=== PATIENT | male | born 1990 | race Caucasian/White ===

== ENCOUNTER 2022-10-28 15:35 | Emergency (ER) | payer MEDICAID, SELFPAY ==
[2022-10-28 15:40] VITALS: BP 170/101; PULSE 104; TEMP 36.2; O2SAT 96; BMI 24.4
--- NOTE | 2022-10-28 16:12 | ED.PSYCH ---
HPI - Psych General Chief Complaint: Psychiatric Problem/Disorder Stated Complaint: Mental Health Crisis Time Seen by Provider: 10/28/22 15:40 History of Present Illness HPI Narrative: This 31 year old male comes in for worsening symptoms of depression and anxiety. He is tearful and fidgeting with lots of anxiety. He states that he did not sleep well last night. He does not report any recent triggers that made things worse. He does have a history of depression and anxiety and is taking fluoxetine for these symptoms. He is also taking a sleeping medicine. He denies using any street drugs. He does state that he drinks alcohol frequently. His last drink was yesterday and states that he does not feel like he is having symptoms of withdrawal. He does report suicidal thoughts and feels unsafe but does not have any specific plan in mind. He has not harmed himself in the past. Related Data Home Medications Medication Instructions Recorded Confirmed fluoxetine 40 mg capsule mg 10/28/22 zolpidem 10 mg tablet mg 10/28/22 Allergies Allergy/AdvReac Type Severity Reaction Status Date / Time No Known Drug Allergies Allergy Verified 10/28/22 15:43 Review of Systems Status of ROS: Reports: 10 or more systems reviewed and unremarkable except as noted in History and below Narrative: Constitutional: No fevers, no weight gain or loss. Eyes: No discharge. No vision changes. HENT: No congestion, no sore throat, no ear pain. Cardiovascular: No chest pain, no palpitations. Respiratory: No shortness of breath, no wheezes, no cough. Gastrointestinal: No abdominal pain, no vomiting, no diarrhea. Genitourinary: No dysuria, no hematuria. Musculoskeletal: Normal range of motion. Skin: No rashes, no pruritis. Neurological: No dizziness, weakness, sensory change, speech change. Endo/Heme/Allergies: No bruising or bleeding. No polydipsia. Pysch: Depression and anxiety with suicidal thoughts. All other systems reviewed and are negative. PFSH PFSH Social History Smoking Status: Never smoker How often do you have a drink containing alcohol: 4 or more times a week How many standard drinks containing alcohol do you have on a typical day: 3 or 4 How often do you have six or more drinks on one occasion: Never AUDIT-C Alcohol total score: 5 Non-prescribed substance use: denies use Exam Narrative: Exam Narrative: Constitutional: Well-developed, well-nourished, no acute distress. HEENT: Normocephalic, atraumatic. Neck: Normal range of motion. Nontender. Supple. Heart: Regular. No murmurs. Normal rate. Intact distal pulses. Lungs: Clear to auscultation. No chest discomfort. No wheezes, rhonchi, or rales. Abdomen: Normal bowel sounds. Nontender. No rebound tenderness. Genitalia: Deferred. Back: No midline tenderness. Normal range of motion. Extremities: Normal range of motion. No injury. Skin: Intact. No rash. Warm. No erythema or pallor. Neurologic: No altered sensation. No weakness. Alert and oriented. Psychiatric: The patient is tearful and fidgeting with anxiety. He is pleasant and cooperative and seeking help. Nursing notes and vitals signs are reviewed. Const: Vital Signs, click to edit/add: Vital Signs - 24 hr 10/28/22 15:40 10/28/22 20:31 Temperature 97.2 F L 98.6 F Pulse Rate [Pulse Oximeter] 104 H 88 Respiratory Rate 16 Blood Pressure [Ri ght Upper Arm] 170/101 H 150/102 H Pulse Oximetry 96 97 Oxygen Delivery Me thod Room Air Course Vital Signs Vital signs: Initial Vital Signs Temperature 97.2 F L 10/28/22 15:40 Temperature Source Temporal Artery Scan 10/28/22 15:40 Pulse Rate 104 H 10/28/22 15:40 Blood Pressure 170/101 H 10/28/22 15:40 Blood Pressure Mean 124 10/28/22 15:40 Blood Pressure Position Sitting 10/28/22 15:40 Pulse Oximetry 96 10/28/22 15:40 Oxygen Delivery Method 10/28/22 15:40 Vital Signs Temperature 97.2 F L 10/28/22 15:40 Pulse Rate 104 H 10/28/22 15:40 Blood Pressure 170/101 H 10/28/22 15:40 Pulse Oximetry 96 10/28/22 15:40 Oxygen Delivery Method 10/28/22 15:40 Temperature 98.6 F 10/28/22 20:31 Pulse Rate 88 10/28/22 20:31 Respiratory Rate 16 10/28/22 20:31 Blood Pressure 150/102 H 10/28/22 20:31 Pulse Oximetry 97 10/28/22 20:31 Oxygen Delivery Method 10/28/22 15:40 MDM - Psych MDM Narrative Medical decision making narrative: This patient comes in with worsening depression and anxiety and feeling unsafe because of suicidal thoughts. He appeared rather anxious and did then receive an oral dose of Ativan 1 mg. A tele health assessment was completed. The patient states that he feels unsafe if he were to go home he is worried that he may hurt himself. He does have thoughts of using a gun or taking pills but reports that he does not have any access to a gun. He does report depression symptoms that are worse in the winter and does have a remote history of traumatic brain injury. He has had increased stressors at work. Urine drug screen does return positive for benzodiazepines and this sample was acquired before he received his oral dose of Ativan here. The Ativan he received here did help him sufficiently with his anxiety symptoms. Attempt was made for transfer to various locations but no beds are available this evening. The patient was informed that he will likely need to spend the night here and hope for something to open up in the morning. He remains cooperative and willing to be transferred when a bed opens. If he were to changes mind he should be placed on a 72 hour hold. This patient is medically cleared to be transferred to an inpatient psych facility for further evaluation and treatment there. Lab Data Labs: Lab Results 10/28/22 10/28/22 10/28/22 Range/Units 15:54 15:54 18:24 WBC (4.50-11.00) K/uL RBC (4.30-5.90) m/uL Hgb (13.5-17.5) gm/dL Hct (37.0-53.0) % MCV (80-100) fL MCH (26-34) pg MCHC (32-36) gm/dL RDW Coeff of Yesica (11.5-15.5) % Plt Count (140-440) K/uL Neut % (Auto) (42.0-72.0) % Lymph % (Auto) (20-44) % [place] % (Auto) (0.0-11.0) % Eos % (Auto) (0.0-7.0) % Baso % (Auto) (0.0-3.0) % Neut # (Auto) (1.7-7.0) K/uL Lymph # (Auto) (0.90-2.90) K/uL [place] # (Auto) (0.00-0.90) K/UL Eos # (Auto) (0.00-0.50) K/uL Baso # (Auto) (0.00-0.30) K/uL Sodium 140 (135-149) mmol/L Potassium 4.1 (3.6-5.1) mmol/L Chloride 103 (96-114) mmol/L Carbon Dioxide 25 (20-32) mmol/L BUN 14 (5-24) mg/dL Creatinine 0.8 (0.5-1.5) mg/dL Estimated Creat Clear 135.61 Estimated GFR 120 ml/min Glucose 103 (60-115) mg/dL Calcium 9.3 (8.4-10.6) mg/dL TSH (0.270-4.20) uIU/mL Urine Opiates Screen Negative (Negative) Ur Oxycodone Screen Negative (Negative) Urine Methadone Screen Negative (Negative) Ur Propoxyphene Screen Negative (Negative) Acetaminophen < 10.0 L (10.0-30.0) ug/mL Ur Barbiturates Screen Negative (Negative) U Tricyclic Antidepress Negative (Negative) Ur Phencyclidine Scrn Negative (Negative) Ur Amphetamines Screen Negative (Negative) U Methamphetamines Scrn Negative (Negative) U Benzodiazepines Scrn POSITIVE A* (Negative) Urine Cocaine Screen Negative (Negative) U Marijuana (THC) Screen Negative (Negative) Ur Drug Screen Comment See Note Ethyl Alcohol < 0.01 L (0.01-0.03) % SARS-CoV-2 (PCR) Negative SARS-CoV-2 (Negative) 10/28/22 10/28/22 Range/Units 18:24 18:24 WBC 8.79 (4.50-11.00) K/uL RBC 5.30 (4.30-5.90) m/uL Hgb 17.1 (13.5-17.5) gm/dL Hct 48.5 (37.0-53.0) % MCV 92 (80-100) fL MCH 32 (26-34) pg MCHC 35 (32-36) gm/dL RDW Coeff of Yesica 11.7 (11.5-15.5) % Plt Count 327 (140-440) K/uL Neut % (Auto) 69.1 (42.0-72.0) % Lymph % (Auto) 19.1 L (20-44) % [place] % (Auto) 8.2 (0.0-11.0) % Eos % (Auto) 2.2 (0.0-7.0) % Baso % (Auto) 0.9 (0.0-3.0) % Neut # (Auto) 6.08 (1.7-7.0) K/uL Lymph # (Auto) 1.70 (0.90-2.90) K/uL [place] # (Auto) 0.70 (0.00-0.90) K/UL Eos # (Auto) 0.19 (0.00-0.50) K/uL Baso # (Auto) 0.08 (0.00-0.30) K/uL Sodium (135-149) mmol/L Potassium (3.6-5.1) mmol/L Chloride (96-114) mmol/L Carbon Dioxide (20-32) mmol/L BUN (5-24) mg/dL Creatinine (0.5-1.5) mg/dL Estimated Creat Clear Estimated GFR ml/min Glucose (60-115) mg/dL Calcium (8.4-10.6) mg/dL TSH 0.792 (0.270-4.20) uIU/mL Urine Opiates Screen (Negative) Ur Oxycodone Screen (Negative) Urine Methadone Screen (Negative) Ur Propoxyphene Screen (Negative) Acetaminophen (10.0-30.0) ug/mL Ur Barbiturates Screen (Negative) U Tricyclic Antidepress (Negative) Ur Phencyclidine Scrn (Negative) Ur Amphetamines Screen (Negative) U Methamphetamines Scrn (Negative) U Benzodiazepines Scrn (Negative) Urine Cocaine Screen (Negative) U Marijuana (THC) Screen (Negative) Ur Drug Screen Comment Ethyl Alcohol (0.01-0.03) % SARS-CoV-2 (PCR) (Negative) Discharge Plan Discharge Clinical Impression: Suicidal ideation, Depression, Acute anxiety Prescriptions: No Action fluoxetine 40 mg capsule Label Comments: TAKE ONE CAPSULE BY MOUTH EVERY DAY zolpidem 10 mg tablet Label Comments: TAKE 1/2 TO 1 TABLET BY MOUTH AT BEDTIME NEEDED FOR SLEEP Follow Up/Referrals: Daljit House MD [Staff Physician] -
[2022-10-28] MEDS: LORazepam 1 MG TABLET PO ×2 (16:15→21:25)
[2022-10-28 16:24] LABS: Amphetamine Screen Urine Negative (Negative); Barbiturate Screen Urine Negative (Negative); Cannabinoid Screen Urine Negative (Negative); Cocaine Screen Urine Negative (Negative); Methadone Screen Urine Negative (Negative); Methamphetamines Screen Urine Negative (Negative); Opiate Screen Urine Negative (Negative); Oxycodone Screen Urine Negative (Negative); Phencyclidine Screen Urine Negative (Negative); Tricyclic Antidepressant Urine Negative (Negative)
[2022-10-28 16:31] LABS: Benzodiazepines Screen Urine POSITIVE (Negative)
[2022-10-28 17:00] LABS: SARS PCR* Negative SARS-CoV-2 (Negative)
[2022-10-28 18:36] LABS: Basophils Absolute Auto 0.08 K/uL (0.00-0.30); Basophils Percent Auto 0.9 % (0.0-3.0); Eosinophils Absolute Auto 0.19 K/uL (0.00-0.50); Eosinophils Percent Auto 2.2 % (0.0-7.0); Hematocrit 48.5 % (37.0-53.0); Hemoglobin* 17.1 gm/dL (13.5-17.5); Immature Granulocytes Abs Auto 0.04 K/uL (0.00-0.30); Immature Granulocytes Pct Auto 0.5 %; Lymphocytes Percent Auto 19.1 % (20-44); Mean Corpuscular HGB Conc 35 gm/dL (32-36); Mean Corpuscular Hemoglobin 32 pg (26-34); Mean Corpuscular Volume 92 fL (80-100); Monocytes Percent Auto 8.2 % (0.0-11.0); Neutrophils Absolute Auto 6.08 K/uL (1.7-7.0); Neutrophils Percent Auto 69.1 % (42.0-72.0); Platelet Count* 327 K/uL (140-440); RDW Coefficient of Variation % 11.7 % (11.5-15.5); White Blood Count* 8.79 K/uL (4.50-11.00)
[2022-10-28 18:40] LABS: Slide Review Reflex No
--- NOTE | 2022-10-28 18:45 | ED.NURSE ---
Belongings secured by security.
[2022-10-28 18:49] LABS: Chloride* 103 mmol/L (96-114); Potassium* 4.1 mmol/L (3.6-5.1); Sodium* 140 mmol/L (135-149)
[2022-10-28 18:51] LABS: Creatinine* 0.8 mg/dL (0.5-1.5); Est. Creatinine Clearance* 135.61; Estimated Glomerular Filt Rate 120 ml/min
[2022-10-28 18:52] LABS: Blood Urea Nitrogen* 14 mg/dL (5-24); Calcium* 9.3 mg/dL (8.4-10.6); Carbon Dioxide* 25 mmol/L (20-32); Glucose* 103 mg/dL (60-115)
[2022-10-28 18:53] LABS: Acetaminophen* < 10.0 ug/mL (10.0-30.0); Ethanol* < 0.01 % (0.01-0.03)
--- NOTE | 2022-10-28 19:00 | ED.NURSE ---
Information faxed to [facility]
[2022-10-28 19:36] LABS: Thyroid Stimulating Hormone* 0.792 uIU/mL (0.270-4.20)
[2022-10-28 20:31] VITALS: BP 150/102; PULSE 88; RESP 16; TEMP 37; O2SAT 97
--- NOTE | 2022-10-28 21:47 | ED.NURSE ---
no beds available tonight. will call in the morning for re-assessment. pt. cooperative and understanding. vitals stable.
[2022-10-28 23:57] VITALS: BP 145/89; PULSE 84; RESP 16; O2SAT 97
--- NOTE | 2022-10-29 00:37 | ED.NURSE ---
pt. sleeping at this time. video monitoring for safety. placement pending.
[2022-10-29 02:28] VITALS: BP 154/90; PULSE 87; RESP 16; O2SAT 97
[2022-10-29 06:11] VITALS: BP 145/85; PULSE 84; RESP 16; TEMP 36.7; O2SAT 97
--- NOTE | 2022-10-29 07:33 | ED.NURSE ---
Pt being monitored on camera for safety. Has been resting and repositioning himself independently. Aunt at bedside.
[2022-10-29 08:44] VITALS: BP 138/92; PULSE 71; RESP 18; TEMP 36.7; O2SAT 96
--- NOTE | 2022-10-29 08:45 | ED.NURSE ---
Pt awake, offered morning meal tray and pt declined. Informed pt to let staff know when he is hungry. Pt denies any other needs.
--- NOTE | 2022-10-29 08:48 | ED.NURSE ---
[facility] called and given updated blood pressure. Does not appear to be withdrawing from ETOH. Will have Dave Echeverria reconsider.
--- NOTE | 2022-10-29 09:53 | ED.NURSE ---
Erika Rodney sent information for review.
--- NOTE | 2022-10-29 09:56 | ED.NURSE ---
Information faxed to [facility].
--- NOTE | 2022-10-29 10:28 | ED.NURSE ---
Dr Robledo in to see pt.
--- NOTE | 2022-10-29 10:37 | ED.NURSE ---
Information faxed to [place] Dave Hernandes
--- NOTE | 2022-10-29 11:37 | ED.NURSE ---
Information given over the phone to [facility]
[2022-10-29 12:10] VITALS: BP 143/91; PULSE 59; RESP 18; TEMP 36.6; O2SAT 99
[2022-10-29] MEDS: FLUOXETINE HCL 20 MG CAPSULE 40 MG PO (12:10)
[2022-10-29] MEDS: LORazepam 1 MG TABLET PO ×2 (13:16→18:02)
--- NOTE | 2022-10-29 14:48 | ED.NURSE ---
Pt resting on cart. Aware there is a delay in transfer. Denies needs. Ativan has helped with anxiety.
--- NOTE | 2022-10-29 16:12 | ED.NURSE ---
EMS and ED road supervisor have been in to discuss with pt and family about the transfer. Plan is to transfer at 1800
--- NOTE | 2022-10-29 18:05 | ED.NURSE ---
Pt and belongings transfered to [facility] via [facility]
== END 2022-10-29 18:05 | disposition home or self-care (01) ==
PROVIDERS: Emergency Medicine Emergency Medical Services; Emergency Provider Family Medicine
DX: R45.851 Suicidal ideations (principal); F41.9 Anxiety disorder, unspecified
CPT/HCPCS: 36415; 80048; 80143; 80306; 82077; 84443; 85025; 87635; 99284; 99285; A9270

== ENCOUNTER 2022-10-29 18:02 | Outpatient (CLI) | payer MEDICAID, SELFPAY | END 2022-10-29 18:03 | disposition home or self-care (01) | LOC: AMB 11-01 09:49 | PROVIDERS: Visit Provider Family Medicine | DX: R45.851 Suicidal ideations (principal) | CPT/HCPCS: A0425; A0428 ==